=== PATIENT | female | born 1995 | race Caucasian/White ===

== ENCOUNTER 2022-12-26 11:00 | Outpatient (CLI) | payer BC, SELFPAY | END 2022-12-26 11:01 | disposition home or self-care (01) | PROVIDERS: PCP Internal Medicine; Visit Provider Registered Nurse | DX: Z01.419 Encounter for gynecological examination (general) (routine) without abnormal findings (principal); R53.83 Other fatigue; Z13.6 Encounter for screening for cardiovascular disorders | CPT/HCPCS: 80061; 82306; 84443 ==

== ENCOUNTER 2023-03-13 07:58 | Outpatient (CLI) | payer BC, SELFPAY ==
--- NOTE | 2023-03-13 08:15 | CRLHL7_ITS ---
For Patients: As a result of the Cures Act, medical imaging exams and procedure reports are released immediately into your electronic medical record. You may view this report before your referring provider. If you have questions, please contact your health care provider. LEFT BREAST LIMITED ULTRASOUND CLINICAL HISTORY: LEFT breast mastodynia. COMPARISON: None TECHNIQUE: Real-time ultrasound imaging of the LEFT breast with imaging documentation. FINDINGS: Targeted ultrasound of the LEFT breast at the lateral aspect extending from 12 through 6 o`clock was performed. Normal dense fibroglandular tissue is present. No fibrocystic change or mass. IMPRESSION: No suspicious findings. No evidence of malignancy. RECOMMENDATIONS: Age-appropriate screening mammography. Results and recommendations were discussed with the patient at the time of the exam. A lay language report of this examination will be provided to the patient. BI-RADS Category 1: Negative. Dictated by Jc Lane MD @ 03/13/2023 8:54:42 AM CRL:[email or web address] RD/Dictated by: Jc Lane MD @ 03/13/2023 8:54:00 AM (Electronically Signed)
== END 2023-03-13 07:59 | disposition home or self-care (01) ==
LOC: US 07:59
PROVIDERS: PCP Internal Medicine; Visit Provider Registered Nurse
DX: N64.4 Mastodynia (principal); R92.30 Dense breasts, unspecified
CPT/HCPCS: 76642